=== PATIENT | female | born 1995 | race Caucasian/White ===

== ENCOUNTER 2017-11-14 18:21 | Emergency (ER) | payer OTHER ==
[~2017-11-14] VITALS: Ht 160 cm; Wt 63.0 kg
[~2017-11-14 18:21] MED LIST: CHILD ASPIRIN81 M1 PO; CLEOCIN300 MG PO; COLACE100 MG PO; IBUPROFEN800 MG PO; IRON325 MG PO; MOTRIN600 MG PO; PERCOCET 5/31 TABLET PO; PRENATAL TABLE1 EACH PO
[2017-11-14 19:22] LABS: HEMATOCRIT 44.9 % (36.0-46.0); HEMOGLOBIN 16.1 G/DL (11.9-15.5); MCH 29.2 PG (29.0-34.0); MCHC 35.9 G/DL (30.0-36.0); MCV 81.5 FL (83-99); PLATELET COUNT 259 K/uL (156-360); RED BLOOD COUNT 5.51 M/uL (3.80-5.20); WHITE BLOOD COUNT 11.2 K/uL (4.1-10.2)
[2017-11-14 19:36] LABS: ALBUMIN 4.9 g/dL (3.2-4.8); CHLORIDE 97 mEq/L (99-109); POTASSIUM 3.7 mEq/L (3.7-5.4); SODIUM 136 mEq/L (136-147)
[2017-11-14 19:38] LABS: GLUCOSE 117 mg/dL (70-99); TOTAL PROTEIN 9.1 g/dL (6.4-8.3)
[2017-11-14 19:40] LABS: TOTAL BILIRUBIN 1.1 mg/dL (0.0-1.0)
[2017-11-14 19:42] LABS: ALKALINE PHOSPHATASE 82 IU/L (3-129); GFR ESTIMATE (CALCULATED) > 59 mL/min/
[2017-11-14 19:43] LABS: UREA NITROGEN (BUN) 20 mg/dL (9-23)
[2017-11-14 19:44] LABS: AST (GOT) 67 IU/L (2-34)
[2017-11-14 19:45] LABS: ALT (GPT) 49 IU/L (3-49); LIPASE 18 U/L (1.0-51.0); QUANTITATIVE HCG < 4.0 MIU/ML
[2017-11-14 19:51] LABS: APPEARANCE CLOUDY ((CLEAR)); BILIRUBIN NEGATIVE; BLOOD SMALL; COLOR AMBER ((YELLOW)); GLUCOSE (STRIP) NEGATIVE; KETONES 5; LEUKOCYTES LARGE; NITRITE POSITIVE; PROTEIN (STRIP) 100; SPECIFIC GRAVITY 1.024 (1.000-1.030)
[2017-11-14 20:34] LABS: BACTERIA 2+ /HPF; EPITHELIAL CELLS 1+ /HPF; MUCUS 2+ /LPF; RED BLOOD CELLS 0-5 /HPF (0-5); UCUL ADDED? YES; WHITE BLOOD CELLS TNTC /HPF (0-5)
[2017-11-14 20:37] LABS: HYALINE CASTS 0-5 /LPF; OTHER TRICHOMONAS
[2017-11-14] MEDS ORDERED: PEPCID20 MG PO (21:31)
[2017-11-14] MEDS ORDERED: BACTRIM,SEPT1 TABLET PO (21:31)
[2017-11-14] MEDS ORDERED: ZOFRAN4 MG PO (21:31)
[2017-11-14 21:48] VITALS: BP 115/69
== END 2017-11-14 21:49 | disposition home or self-care (01) ==
LOC: EME 18:21 → EXP 18:21
PROVIDERS: Physician Assistant
DX: N39.0 Urinary tract infection, site not specified (principal); R11.2 Nausea with vomiting, unspecified; R10.13 Epigastric pain; F17.200 Nicotine dependence, unspecified, uncomplicated
CPT/HCPCS: 74176; 80053; 81003; 83690; 84702; 85027; 87077; 87086; 87186; 99281; 99284

== ENCOUNTER → 2017-12-31 | Emergency (ER) | payer OTHER ==
[~2017-12-31] VITALS: Ht 157.5 cm; Wt 63.1 kg
[~2017-12-31] MED LIST changes: +BACTRIM,SEPT1 TABLET PO; +CARAFATE1 GM PO; +PEPCID20 MG PO; +PEPCID40 MG PO; +ZOFRAN4 MG PO
[2017-12-31 17:55] LABS: HEMATOCRIT 41.4 % (36.0-46.0); HEMOGLOBIN 14.5 G/DL (11.9-15.5); MCV 82.8 FL (83-99); PLATELET COUNT 227 K/uL (156-360); RBC DIS.WIDTH-CV 13.5 % (11.8-14.6); RBC DIS.WIDTH-SD 40.8 % (39-53); WHITE BLOOD COUNT 8.7 K/uL (4.1-10.2)
[2017-12-31 18:23] LABS: ALBUMIN 4.3 G/DL (3.2-4.8); CHLORIDE 106 MEQ/L (99-109); POTASSIUM 4.2 MEQ/L (3.7-5.4); SODIUM 141 MEQ/L (136-147); TOTAL BILIRUBIN 0.4 MG/DL (0.0-1.0)
[2017-12-31 18:29] LABS: ALKALINE PHOSPHATASE 54 IU/L (3-129); ALT (GPT) 10 IU/L (3-49); AST (GOT) 10 IU/L (2-34); CREATININE 0.7 MG/DL (0.6-1.3); GFR ESTIMATE (CALCULATED) > 59 mL/min/; GLUCOSE 100 mg/dL (70-99); LIPASE 14 U/L (1.0-51.0); TOTAL PROTEIN 6.9 G/DL (6.4-8.3); UREA NITROGEN (BUN) 6 mg/dL (9-23)
[2017-12-31 19:02] LABS: QUANTITATIVE HCG < 4.0 MIU/ML
[2017-12-31 19:24] LABS: APPEARANCE CLOUDY ((CLEAR)); BILIRUBIN NEGATIVE; BLOOD NEGATIVE; COLOR YELLOW ((YELLOW)); GLUCOSE (STRIP) NEGATIVE; KETONES 20; LEUKOCYTES LARGE; NITRITE NEGATIVE; PROTEIN (STRIP) NEGATIVE; SPECIFIC GRAVITY 1.014 (1.000-1.030)
[2017-12-31 19:57] LABS: BACTERIA RARE /HPF; EPITHELIAL CELLS 3+ /HPF; MUCUS 1+ /LPF; UCUL ADDED? YES
[2017-12-31 22:53] LABS: COCAINE NEGATIVE (150 ng/mL); METHAMPHETAMINE NEGATIVE (500 ng/mL); OPIATES (MORPHINE) NEGATIVE (100 ng/mL); PHENCYCLIDINE NEGATIVE (25 ng/mL); THC CANNABINOIDS PRESUMPTIVE POSITIVE (50 ng/mL)
[2017-12-31 22:54] LABS: AMPHETAMINE NEGATIVE (500 ng/mL); BARBITURATES NEGATIVE (200 ng/mL); BENZODIAZEPINES NEGATIVE (150 ng/mL); BUPRENORPHINE NEGATIVE (10 ng/mL); METHADONE PRESUMPTIVE POSITIVE (200 ng/mL); OXYCODONE NEGATIVE (100 ng/mL); PROPOXYPHENE NEGATIVE (300 ng/mL); TRICYCLIC ANTIDEPRESSANTS NEGATIVE (300 ng/mL)
[2017-12-31 23:29] VITALS: BP 124/77
== END | disposition home or self-care (01) ==
LOC: EME 16:25
PROVIDERS: Physician Assistant
DX: R10.13 Epigastric pain (principal); R11.2 Nausea with vomiting, unspecified; R50.9 Fever, unspecified; F12.90 Cannabis use, unspecified, uncomplicated; F17.200 Nicotine dependence, unspecified, uncomplicated
CPT/HCPCS: 76705; 80053; 81003; 83690; 84702; 84999; 85027; 87086; 99281; 99285